=== PATIENT | female | born 1955 | race Caucasian/White ===

== ENCOUNTER → 2016-12-09 | Outpatient (CLI) | payer BC ==
--- NOTE | 2016-12-11 10:24 | MM ---
Reason for exam: screening (asymptomatic). Last mammogram was performed 1 year and 1 month ago. History: Patient is postmenopausal. Benign left mammotome panel of the left breast, January 08, 2009. Cancelled Right US Needle Biopsy of the right breast, January 08, 2009. Took hormonal contraceptives for 6 years beginning at age 21. Physical Findings: A clinical breast exam by your physician is recommended on an annual basis and results should be correlated with mammographic findings. MG Screening Mammo w CAD Bilateral CC and MLO view(s) were taken. Prior study comparison: November 07, 2015, bilateral MG screening mammo w CAD. July 19, 2014, bilateral MG screening mammo w CAD. June 08, 2013, bilateral digital screening mammo w/CAD. The breast tissue is heterogeneously dense. This may lower the sensitivity of mammography. Previous mammotome biopsy in the left breast. No significant changes when compared with prior studies. ASSESSMENT: Negative, BI-RAD 1 RECOMMENDATION: Routine screening mammogram of both breasts in 1 year.
== END | disposition home or self-care (01) ==
LOC: RADMAMWWP 12:31
PROVIDERS: ATTEND Family Medicine
DX: Z12.31 Encounter for screening mammogram for malignant neoplasm of breast (principal)

== ENCOUNTER → 2018-05-28 | Outpatient (CLI) | payer BC ==
--- NOTE | 2018-06-02 10:41 | MM ---
Reason for exam: screening (asymptomatic). Last mammogram was performed 1 year and 6 months ago. History: Patient is postmenopausal. Benign left mammotome panel of the left breast, January 08, 2009. Cancelled Right US Needle Biopsy of the right breast, January 08, 2009. Took hormonal contraceptives for 6 years beginning at age 21. Physical Findings: A clinical breast exam by your physician is recommended on an annual basis and results should be correlated with mammographic findings. MG Screening Mammo W/o Cad Bilateral CC and MLO view(s) were taken. Prior study comparison: December 09, 2016, bilateral MG screening mammo w CAD. November 07, 2015, bilateral MG screening mammo w CAD. The breast tissue is heterogeneously dense. This may lower the sensitivity of mammography. Previous mammotome biopsy in the left breast. There is no discrete abnormality. ASSESSMENT: Benign, BI-RAD 2 RECOMMENDATION: Routine screening mammogram of both breasts in 1 year.
== END | disposition home or self-care (01) ==
LOC: RADMAMWWP 10:01
PROVIDERS: ATTEND Family Medicine
DX: Z12.31 Encounter for screening mammogram for malignant neoplasm of breast (principal)
CPT/HCPCS: 77067

== ENCOUNTER → 2019-10-28 | Outpatient (CLI) | payer BC ==
--- NOTE | 2019-10-28 16:29 | CTL ---
EXAMINATION TYPE: CT Low Dose Lung DATE OF EXAM ORDERED: 10/28/2019 COMPARISON: None HISTORY: . Low Dose CT Lung Screening CT DLP: 60.[address] CTDI: 1.8 mGy IV CONTRAST USED: None. SCREENING VISIT: First visit COMPARISON: None. TECHNIQUE: Low dose computed tomography scan was performed through the chest at 1 millimeter thick se ctions and reconstructed images in the coronal plane at [address] DIAGNOSTIC QUALITY: Satisfactory FINDINGS: LUNG NODULES: Not presentLeft lung: no nodules identified.Right lung: no nodules identified. LUNGS: COPD: Severity: None Fibrosis: Severity:None Lymph nodes: None Other findings: None RIGHT PLEURAL SPACE: Effusion: None Calcification: None Thickening: None Pneumothorax: None LEFT PLEURAL SPACE: Effusion: None Calcification: None Thickening: None Pneumothorax: None HEART: Heart Size: Mildly enlarged Coronary calcification: Mild Pericardial effusion: None OTHER FINDINGS: Upper abdomen: No significant abnormality Bony thorax: Degenerative changes Supraclavicular region: No significant abnormalityOther: No significant abnormalityI IMPRESSION: Benign FOLLOW UP CT CHEST RECOMMENDATION: Follow-up screening in one year CT LUNG RAD: LUNG RAD CATEGORY 1 negative
== END | disposition home or self-care (01) ==
LOC: RADCTMAIN 15:51
PROVIDERS: ATTEND Family Medicine
DX: Z12.2 Encounter for screening for malignant neoplasm of respiratory organs (principal); F17.210 Nicotine dependence, cigarettes, uncomplicated

== ENCOUNTER → 2019-11-29 | Outpatient (CLI) | payer BC ==
--- NOTE | 2019-11-30 11:04 | MM ---
Reason for exam: screening (asymptomatic). Last mammogram was performed 1 year and 6 months ago. History: Patient is postmenopausal. Benign left mammotome panel of the left breast, January 08, 2009. Cancelled Right US Needle Biopsy of the right breast, January 08, 2009. Took hormonal contraceptives for 6 years beginning at age 21. Physical Findings: A clinical breast exam by your physician is recommended on an annual basis and results should be correlated with mammographic findings. MG 3D Screening Mammo W/Cad Bilateral CC and MLO view(s) were taken. Prior study comparison: May 28, 2018, bilateral MG screening mammo w/o cad. December 09, 2016, bilateral MG screening mammo w CAD. The breast tissue is heterogeneously dense. This may lower the sensitivity of mammography. There is a 4mm upper inner quadrant middle depth mass on the right. No suspicious abnormality on the left. ASSESSMENT: Incomplete: need additional imaging evaluation, BI-RAD 0 RECOMMENDATION: Special view mammogram of the right breast. If lesion persists on supplemental views, image directed ultrasound is recommended. [facility] will attempt to contact patient to return for supplemental views and ultrasound if indicated.
== END | disposition home or self-care (01) ==
LOC: RADMAMWWP 09:33
PROVIDERS: ATTEND Family Medicine
DX: Z12.31 Encounter for screening mammogram for malignant neoplasm of breast (principal); Z12.11 Encounter for screening for malignant neoplasm of colon
CPT/HCPCS: 77063; 77067

== ENCOUNTER → 2019-12-13 | Outpatient (CLI) | payer BC ==
--- NOTE | 2019-12-13 11:55 | MM ---
Reason for exam: additional evaluation requested from abnormal screening. Last mammogram was performed less than 1 month ago. History: Patient is postmenopausal. Benign left mammotome panel of the left breast, January 08, 2009. Cancelled Right US Needle Biopsy of the right breast, January 08, 2009. Took hormonal contraceptives for 6 years beginning at age 21. Physical Findings: Nurse did not find any significant physical abnormalities on exam. MG 3D Work Up W/Cad RT Spot compression CC, spot compression MLO, and ML view(s) were taken of the right breast. Prior study comparison: November 29, 2019, bilateral MG 3d screening mammo w/cad. May 28, 2018, bilateral MG screening mammo w/o cad. Persistent nodule posterior to right nipple 7mm, 3.6cm from nipple. These results were verbally communicated with the patient and result sheet given to the patient on 12/13/19. ASSESSMENT: Incomplete: need additional imaging evaluation, BI-RAD 0 RECOMMENDATION: Ultrasound of the right breast.
--- NOTE | 2019-12-13 11:57 | USB ---
Reason for exam: additional evaluation requested from abnormal screening. History: Patient is postmenopausal. Benign left mammotome panel of the left breast, January 08, 2009. Cancelled Right US Needle Biopsy of the right breast, January 08, 2009. Took hormonal contraceptives for 6 years beginning at age 21. US Breast Workup Limited RT Right limited breast ultrasound including focal area of concern, retroareolar and axilla demonstrates no cystic or solid lesion seen. These results were verbally communicated with the patient and result sheet given to the patient on 12/13/19. ASSESSMENT: Probably benign, BI-RAD 3 RECOMMENDATION: Follow-up diagnostic mammogram of the right breast in 6 months.
== END | disposition home or self-care (01) ==
LOC: RADMAMWWP 09:59
PROVIDERS: ATTEND Family Medicine
DX: R92.8 Other abnormal and inconclusive findings on diagnostic imaging of breast (principal)
CPT/HCPCS: 77061; 77065

== ENCOUNTER → 2021-01-22 | Outpatient (CLI) | payer BC ==
--- NOTE | 2021-01-22 11:40 | MM ---
Reason for exam: additional evaluation requested from prior study. Last mammogram was performed 1 year and 1 month ago. History: Patient is postmenopausal. Benign left mammotome panel of the left breast, January 08, 2009. Cancelled Right US Needle Biopsy of the right breast, January 08, 2009. Took hormonal contraceptives for 6 years beginning at age 21. Physical Findings: Nurse did not find any significant physical abnormalities on exam. MG Diagnostic Mammo w CAD BHARGAVI Bilateral CC and MLO view(s) were taken. Prior study comparison: November 29, 2019, bilateral MG 3d screening mammo w/cad. May 28, 2018, bilateral MG screening mammo w/o cad. December 09, 2016, bilateral MG screening mammo w CAD. November 07, 2015, bilateral MG screening mammo w CAD. The breast tissue is heterogeneously dense. This may lower the sensitivity of mammography. No significant new findings when compared with previous films. These results were verbally communicated with the patient and result sheet given to the patient on 01/22/21. ASSESSMENT: Benign, BI-RAD 2 RECOMMENDATION: Routine screening mammogram of both breasts in 1 year.
== END | disposition home or self-care (01) ==
LOC: RADMAMWWP 10:50
PROVIDERS: ATTEND Family Medicine
DX: R92.2 Inconclusive mammogram (principal); Z78.0 Asymptomatic menopausal state
CPT/HCPCS: 77066

== ENCOUNTER 2021-10-24 08:19 | Emergency (ER) | payer MEDICARE ==
[2021-10-24] MEDS ORDERED: SODIUM CHLORIDE 0.9% 1,000 ML IV STA (08:40)
--- NOTE | 2021-10-24 09:02 | ED ---
Abdominal Pain HPI - General Chief Complaint: Abdominal Pain Stated Complaint: abd pain, swelling Time Seen by Provider: 10/24/21 08:27 Source: patient Mode of arrival: ambulatory Limitations: no limitations - History of Present Illness Initial Comments: 66-year-old female presents to the emergency department with abdominal pain 1 week. She has a past medical history of 3 double hernia repair surgeries in her past which she believes were umbilical and in her groin.Patient states her abdominal pain is in her left lower quadrant and comes and goes throughout the day, varying in severity. She states 4 days ago she noticed her left lower quadrant began to swell, which brought her in today. States her pain is currently 2/10 and describes the pain as aching. She states this pain is random. Patient states she did vomit one time last week when the pain began. She denies nausea, diarrhea, constipation, blood in stool, headache, dizziness, chest pain or shortness of breath. She denies ever having diverticulitis in her past. - Related Data Home Medications Medication Instructions Recorded Confirmed No Known Home Medications 10/24/21 10/24/21 Allergies Allergy/AdvReac Type Severity Reaction Status Date / Time No Known Allergies Allergy Verified 10/24/21 09:32 Review of Systems ROS Statement: Those systems with pertinent positive or pertinent negative responses have been documented in the HPI. ROS Other: All systems not noted in ROS Statement are negative. Past Medical History Past Medical History: No Reported History History of Any Multi-Drug Resistant Organisms: None Reported Past Surgical History: Section, Hernia Repair, Orthopedic Surgery Additional Past Surgical History / Comment(s): R wrist Past Psychological History: No Psychological Hx Reported Smoking Status: Current every day smoker Past Alcohol Use History: None Reported Past Drug Use History: None Reported General Exam Limitations: no limitations General appearance: alert, in no apparent distress Head exam: Present: atraumatic, normocephalic, normal inspection Eye exam: Present: normal appearance, PERRL, EOMI. Absent: scleral icterus, conjunctival injection, periorbital swelling ENT exam: Present: normal exam, mucous membranes moist Neck exam: Present: normal inspection Respiratory exam: Present: normal lung sounds bilaterally. Absent: respiratory distress, wheezes, rales, rhonchi, stridor Cardiovascular Exam: Present: regular rate, normal rhythm, normal heart sounds. Absent: systolic murmur, diastolic murmur, rubs, gallop, clicks GI/Abdominal exam: Present: soft, tenderness (minor swelling in left groin/lower left quadrant of abdomen ), normal bowel sounds Extremities exam: Present: normal inspection, full ROM. Absent: tenderness, pedal edema, joint swelling, calf tenderness Neurological exam: Present: alert Psychiatric exam: Present: normal affect Skin exam: Present: warm, dry, intact, normal color. Absent: rash Course Vital Signs 10/24/21 08:21 Temperature 98.6 F Pulse Rate 88 Respiratory 16 Rate Blood Pressure 145/91 O2 Sat by Pulse 98 Oximetry Medical Decision Making - Medical Decision Making This 66-year-old female presented to the emergency department with 1 week of intermittent abdominal pain and swelling. Labs and vitals within normal limits. Abdominal CT scan showed possible enteritis or sliding hernia. Return precautions discussed, patient sent home in stable condition and was told to follow up with PCP or surgeon within 3 days. - Lab Data Result diagrams: 10/24/21 08:52 10/24/21 08:52 Lab Results 10/24/21 10/24/21 10/24/21 Range/Units 08:52 08:52 08:52 WBC 8.7 (3.8-10.6) k/uL RBC 5.09 (3.80-5.40) m/uL Hgb 16.1 H (11.4-16.0) gm/dL Hct 49.1 H (34.0-46.0) % MCV 96.5 (80.0-100.0) fL MCH 31.6 (25.0-35.0) pg MCHC 32.7 (31.0-37.0) g/dL RDW 12.9 (11.5-15.5) % Plt Count 247 (150-450) k/uL MPV 6.8 Neutrophils % 66 % Lymphocytes % 23 % Monocytes % 5 % Eosinophils % 3 % Basophils % 1 % Neutrophils # 5.7 (1.3-7.7) k/uL Lymphocytes # 2.0 (1.0-4.8) k/uL Monocytes # 0.4 (0-1.0) k/uL Eosinophils # 0.3 (0-0.7) k/uL Basophils # 0.1 (0-0.2) k/uL Sodium 140 (137-145) mmol/L Potassium 4.3 (3.5-5.1) mmol/L Chloride 102 (98-107) mmol/L Carbon Dioxide 27 (22-30) mmol/L Anion Gap 11 mmol/L BUN 16 (7-17) mg/dL Creatinine 1.05 H (0.52-1.04) mg/dL Est GFR (CKD-EPI)AfAm 64 (>60 ml/min/1.73 sqM) Est GFR (CKD-EPI)NonAf 56 (>60 ml/min/1.73 sqM) Glucose 116 H (74-99) mg/dL Plasma Lactic Acid [place] (0.7-2.0) mmol/L Calcium 10.3 H (8.4-10.2) mg/dL Total Bilirubin 0.8 (0.2-1.3) mg/dL AST 29 (14-36) U/L ALT 22 (4-34) U/L Alkaline Phosphatase 72 (38-126) U/L Total Protein 7.6 (6.3-8.2) g/dL Albumin 4.7 (3.5-5.0) g/dL Lipase 84 (23-300) U/L Urine Color Yellow Urine Appearance Clear (Clear) Urine pH 7.5 (5.0-8.0) Ur Specific [place] 1.013 (1.001-1.035) Urine Protein Negative (Negative) Urine Glucose (UA) Negative (Negative) Urine Ketones Negative (Negative) Urine Blood Negative (Negative) Urine Nitrite Negative (Negative) Urine Bilirubin Negative (Negative) Urine Urobilinogen <2.0 (<2.0) mg/dL Ur Leukocyte Esterase Large H (Negative) Urine RBC 2 (0-5) /hpf Urine WBC 4 (0-5) /hpf Ur Squamous Epith Cells <1 (0-4) /hpf Urine Mucus Rare H (None) /hpf 10/24/21 Range/Units 08:52 WBC (3.8-10.6) k/uL RBC (3.80-5.40) m/uL Hgb (11.4-16.0) gm/dL Hct (34.0-46.0) % MCV (80.0-100.0) fL MCH (25.0-35.0) pg MCHC (31.0-37.0) g/dL RDW (11.5-15.5) % Plt Count (150-450) k/uL MPV Neutrophils % % Lymphocytes % % Monocytes % % Eosinophils % % Basophils % % Neutrophils # (1.3-7.7) k/uL Lymphocytes # (1.0-4.8) k/uL Monocytes # (0-1.0) k/uL Eosinophils # (0-0.7) k/uL Basophils # (0-0.2) k/uL Sodium (137-145) mmol/L Potassium (3.5-5.1) mmol/L Chloride (98-107) mmol/L Carbon Dioxide (22-30) mmol/L Anion Gap mmol/L BUN (7-17) mg/dL Creatinine (0.52-1.04) mg/dL Est GFR (CKD-EPI)AfAm (>60 ml/min/1.73 sqM) Est GFR (CKD-EPI)NonAf (>60 ml/min/1.73 sqM) Glucose (74-99) mg/dL Plasma Lactic Acid [place] 1.1 (0.7-2.0) mmol/L Calcium (8.4-10.2) mg/dL Total Bilirubin (0.2-1.3) mg/dL AST (14-36) U/L ALT (4-34) U/L Alkaline Phosphatase (38-126) U/L Total Protein (6.3-8.2) g/dL Albumin (3.5-5.0) g/dL Lipase (23-300) U/L Urine Color Urine Appearance (Clear) Urine pH (5.0-8.0) Ur Specific [place] (1.001-1.035) Urine Protein (Negative) Urine Glucose (UA) (Negative) Urine Ketones (Negative) Urine Blood (Negative) Urine Nitrite (Negative) Urine Bilirubin (Negative) Urine Urobilinogen (<2.0) mg/dL Ur Leukocyte Esterase (Negative) Urine RBC (0-5) /hpf Urine WBC (0-5) /hpf Ur Squamous Epith Cells (0-4) /hpf Urine Mucus (None) /hpf Disposition Clinical Impression: Abdominal pain Disposition: HOME SELF-CARE Condition: Stable Instructions (If sedation given, give patient instructions): Abdominal Pain (ED) Additional Instructions: Return to emergency department if any symptoms worsen. Take Tylenol as needed for pain. Follow up wtih PCP or surgeon within 3 days. Is patient prescribed a controlled substance at d/c from ED?: No Referrals: Barb Santos MD [Primary Care Provider] - 1-2 days Decision Time: 10:51
[2021-10-24 09:03] LABS: Basophils # (A) 0.1 k/uL (0-0.2); Basophils % (A) 1 %; Eosinophils # (A) 0.3 k/uL (0-0.7); Eosinophils % (A) 3 %; HCT 49.1 % (34.0-46.0); HGB 16.1 gm/dL (11.4-16.0); Lymphocytes % (A) 23 %; MCH 31.6 pg (25.0-35.0); MCHC 32.7 g/dL (31.0-37.0); MCV 96.5 fL (80.0-100.0); Mean Platelet Volume 6.8; Monocytes # (A) 0.4 k/uL (0-1.0); Monocytes % (A) 5 %; Neutrophils # (A) 5.7 k/uL (1.3-7.7); Neutrophils % (A) 66 %; Platelet Count 247 k/uL (150-450); RBC 5.09 m/uL (3.80-5.40); RDW 12.9 % (11.5-15.5); WBC 8.7 k/uL (3.8-10.6)
[2021-10-24 09:14] LABS: Appearance,Urine Clear (Clear); Bilirubin,Urine Negative (Negative); Blood,Urine Negative (Negative); Color,Urine Yellow; Glucose,Urine (UA) Negative (Negative); Ketones,Urine Negative (Negative); Leukocyte Esterase,Urine Large (Negative); Mucus,Urine Rare /hpf; Nitrite,Urine Negative (Negative); PH, Urine 7.5 (5.0-8.0); Protein,Urine Negative (Negative); RBC,Urine 2 /hpf (0-5); Specific Gravity,Urine 1.013 (1.001-1.035); Squamous Epithelial Cell,Urine <1 /hpf (0-4); Urobilinogen,Urine <2.0 mg/dL (<2.0); WBC,Urine 4 /hpf (0-5)
[2021-10-24 09:16] LABS: Albumin 4.7 g/dL (3.5-5.0); Calcium 10.3 mg/dL (8.4-10.2); Potassium 4.3 mmol/L (3.5-5.1); Total Bilirubin 0.8 mg/dL (0.2-1.3); Total Protein 7.6 g/dL (6.3-8.2)
--- NOTE | 2021-10-24 10:14 | CT ---
EXAMINATION TYPE: CT abdomen pelvis w con DATE OF EXAM: 10/24/2021 COMPARISON: None HISTORY: Abdominal pain and swelling for one week CT DLP: 713.8 mGycm Automated exposure control for dose reduction was used. TECHNIQUE: Helical acquisition of images from the lung bases through the pelvis have been completed. CONTRAST: Performed without Oral Contrast and with IV Contrast, patient injected with 100 ml mL of Isovue 300. FINDINGS: LUNG BASES: Dependent atelectatic changes are present. AORTA: No significant abnormality is appreciated. LIVER/GB: There is some mild prominence the intrahepatic biliary ducts, gallbladder shows no definite stones. There is some metallic density present along the region which is thought to be posterior to the common bile duct, immediately anterior to the inferior vena cava, nonaggressive appearance, may b e vascular or associated with a node. PANCREAS: No significant abnormality is seen. SPLEEN: No significant abnormality is seen. ADRENALS: No significant abnormality is seen. KIDNEYS: No significant abnormality is seen. REPRODUCTIVE ORGANS: No significant abnormality is seen BOWEL: Scattered diverticula associated with the colon, no evident bowel obstruction or appendicitis . There are some small bowel loops fluid present, questionable small bowel wall thickening in the lef t upper quadrant. FREE AIR: No Free Air visible. ASCITES: None visible. PELVIC ADENOPATHY: None visualized. RETROPERITONEAL ADENOPATHY: No Retroperitoneal Adenopathy visible. URINARY BLADDER: No significant abnormality is seen. OSSEOUS STRUCTURES: Degenerative disc changes are present in the lumbar spine, there is some associa candace facet arthropathy. IMPRESSION: NONSPECIFIC CALCIFICATION SUSPECTED IN THE RIGHT UPPER QUADRANT. SOME MILD PROMINENCE OF INTRAHEPATIC BILIARY DUCTS. DIVERTICULOSIS. CORRELATE TO EXCLUDE ENTERITIS.
[2021-10-24 10:49] VITALS: BP 135/75; PULSE 65; RESP 18; TEMP 97.4
== END 2021-10-24 11:06 | disposition home or self-care (01) ==
LOC: EC 08:19
DX: R10.9 Unspecified abdominal pain (principal); F17.200 Nicotine dependence, unspecified, uncomplicated
CPT/HCPCS: 36415; 80053; 83605; 83690; 85025; 81001; 74177; 99284; 96360; Q9967

== ENCOUNTER 2022-04-18 08:02 | Day surgery (SDC) | payer MEDICARE ==
[2022-04-17 09:56] VITALS: BMI 21.6
--- NOTE | 2022-04-17 15:50 | P.GSHP ---
History of Present Illness H&P Date: 04/18/22 Chief Complaint: Left inguinal hernia 66-year-old female scheduled for elective repair left inguinal hernia. Patient with complaints of bulging and pain in the left groin. History of previous open repair right inguinal hernia with mesh. No nausea or vomiting. No change in bowel habits. Please refer to history and physical from January for further details. Past Medical History Past Medical History: No Reported History Additional Past Medical History / Comment(s): left inguinal hernia History of Any Multi-Drug Resistant Organisms: None Reported Past Surgical History: Section, Hernia Repair, Orthopedic Surgery Additional Past Surgical History / Comment(s): R wrist,3 double umbilical hernia repair Past Anesthesia/Blood Transfusion Reactions: No Reported Reaction Additional Past Anesthesia/Blood Transfusion Reaction / Comment(s): no hx blood transfusion Smoking Status: Current every day smoker - Past Family History Mother Family Medical History: Cancer Additional Family Medical History / Comment(s): lung Medications and Allergies Home Medications Medication Instructions Recorded Confirmed Type Calcium(500 Mg Tab) 1 dose PO DAILY 04/17/22 04/17/22 History Cannabidiol (Cbd) [Epidiolex] 1 dose PO HS 04/17/22 04/17/22 History Garlic 100 mg PO DAILY 04/17/22 04/17/22 History Selenium 50 mcg PO DAILY 04/17/22 04/17/22 History Triple [place] 3 Supp 1 dose PO DAILY 04/17/22 04/17/22 History Allergies Allergy/AdvReac Type Severity Reaction Status Date / Time No Known Allergies Allergy Verified 04/17/22 08:54 Surgical - Exam Physical exam: General: Well-developed, well-nourished HEENT: Normocephalic, sclerae nonicteric Abdomen: Nontender, nondistended, reducible left inguinal hernia mildly tender, possible tiny recurrent right inguinal hernia Extremities: No edema Neuro: Alert and oriented Assessment and Plan (1) Left inguinal hernia Narrative/Plan: 66-year-old female with symptomatic left inguinal hernia. We'll proceed with da Rogelio assisted laparoscopic left inguinal hernia repair with mesh, possible open, possible bilateral. Risks of bleeding, infection, recurrence, bladder and bowel injury, numbness, nerve injury, conversion to an open procedure were discussed with the patient. The patient understands and wishes to proceed. Status: Acute Code(s): K40.90 - UNIL INGUINAL HERNIA, W/O OBST OR GANGR, NOT SPCF RECUR SNOMED Code(s): 458190900
[~2022-04-18 08:02] MED LIST: ACETAMINOPHEN TAB 500 MG TAB PO PRN; DEXAMETHASONE SOD PHOSPHATE 4 MG/ML 1 ML VIAL IV ONE; HEPARIN SODIUM,PORCINE/PF 5,000 UNIT/0.5 ML SYRINGE SQ PRN; HYDROmorphone 0.5 MG/0.5 ML SYRINGE IVP PRN; LACTATED RINGERS 1,000 ML IV SCH; LIDOCAINE 1% (10MG/ML) FOR IV START INTRADERMA PRN; MIDAZOLAM 2 MG/2 ML VIAL IV PRN; ONDANSETRON 4 MG/2 ML VIAL IVP ONE
[2022-04-18] MEDS ORDERED: HYDROmorphone (PF) 1 MG/ML ONE (10:06)
[2022-04-18] MEDS ORDERED: NEOSTIGMINE 1 MG/ML 10 ML VIAL ONE (10:06)
[2022-04-18] MEDS ORDERED: SUCCINYLCHOLINE CHLORIDE 100 MG/5 ML SYR IV ONE (10:06)
[2022-04-18] MEDS ORDERED: PROPOFOL 10 MG/ML 20 ML VIAL IV ONE (10:06)
[2022-04-18] MEDS ORDERED: fentaNYL (PF) 50 MCG/ML 2 ML AMP ONE (10:06)
[2022-04-18] MEDS ORDERED: ROCURONIUM 10 MG/ML (5 ML VIAL) IV ONE (10:06)
[2022-04-18] MEDS ORDERED: LIDOCAINE 2% INJ 20 MG/ML (2 ML VIAL) ONE (10:06)
[2022-04-18] MEDS ORDERED: hydrALAZINE HCL 20 MG/ML 1 ML VIAL ONE (10:06)
[2022-04-18] MEDS ORDERED: MIDAZOLAM 2 MG/2 ML VIAL ONE (10:06)
[2022-04-18] MEDS ORDERED: PHENYLEPHRINE-0.9% NACL SYG 1,000 MCG/10 ML SYRINGE ONE (10:06)
[2022-04-18] MEDS ORDERED: GLYCOPYRROLATE 0.2 MG/ML 2 ML VIAL ONE (10:06)
[2022-04-18] MEDS ORDERED: BUPIVACAIN-EPI 0.25%-1:200,000 30 ML VIAL SQ ONE (10:30)
[2022-04-18 11:42] VITALS: TEMP 97.6
[2022-04-18 11:48] VITALS: RESP 16
[2022-04-18] MEDS ORDERED: ONDANSETRON 4 MG/2 ML VIAL IVP PRN (11:56)
[2022-04-18] MEDS ORDERED: ACETAMINOPHEN TAB 325 MG TAB PO SCH (12:00)
--- NOTE | 2022-04-18 12:06 | P.OP ---
Date of Procedure: 04/18/22 Procedure(s) Performed: PREOPERATIVE DIAGNOSIS: Reducible left inguinal hernia POSTOPERATIVE DIAGNOSIS: Same PROCEDURE: Laparoscopic da Rogelio assisted repair left inguinal hernia SURGEON: Dr. Haque ANESTHESIA: General OPERATIVE PROCEDURE DETAILS: Patient was placed in the operating table in the supine position. The patient was placed under general anesthesia. The abdomen was prepped and draped in usual sterile fashion. A small curvilinear supraumbilical incision was made. The fascia was retracted anteriorly with Rayna forceps. The Veress needle was inserted. The saline drop test was normal. Insufflation took place to 15 mmHg. An 8 mm trocar was placed into the peritoneal cavity. 2 additional 8 mm trochars were placed in the right upper quadrant and left upper quadrant under visualization. The robotic arms were then brought in and docked into place. The fenestrated bipolar was used in the left arm and the laparoscopic abebe was utilized in the right arm. A 30 8 mm scope was used in the up position. The peritoneal cavity was inspected. The patient had an obviously moderate to large sized indirect inguinal hernia on the left-hand side. It was difficult to say with certainty without opening the peritoneum but there may have been a small defect in the direct space on the r ight hand side. The patient had no symptoms on that side and this was observed for now. The left-sided peritoneum was incised in a horizontal fashion cephalad to the internal inguinal ring. Following that careful dissection of the preperitoneal space took place. This took place using both electrocautery, sharp dissection but primarily blunt dissection. Visualization of the pubic tubercle and Alf's ligament took place medially. Full dissection took place laterally as well. The hernia sac was dissected. As we were dissecting the peritoneal hernia sac it tore away distally. A portion of the end of the hernia sac was left in place. The peritoneum was further dissected posteriorly until we had a large space for our mesh to adhere. The large Bard 3-D mid mesh was advanced into the preperitoneal space and flattened out appropriately to cover all potential hernia sites. No sutures were used. The peritoneal defect was then closed using a absorbable 2-0 VLok suture. This same suture was used to close the defect in the peritoneum or the hernia sac had been present and I incorporated all redundant hernia sac into that closure. The skin of all 3 sites was closed using a 4-0 Monocryl stitch. Skin glue was then applied. TYPE OF MESH USED: Bard large left sided 3-D mid LOCATION OF MESH: Preperitoneal FIXATION: None PREOPERATIVE DISCUSSION ON SMOKING CESSASTION: Yes PREOPERATIVE DISCUSSION ON MORBID OBESITY: Yes PREOPERATIVE DISCUSSION ON APPROPRIATE USE OF NARCOTIC USE: Yes PREOPERATIVE EDUCATION: Multi Modal, Smoking Cessation and Weight Loss with BMI over 35. DISPOSITION: Stable to recovery room
[2022-04-18] MEDS ORDERED: IBUPROFEN 200 MG TAB PO ONE (12:30)
[2022-04-18 12:48] VITALS: BP 120/73; PULSE 80
[2022-04-18] MEDS ORDERED: IBUPROFEN 600 MG TAB PO SCH (15:00)
== END 2022-04-18 13:24 | disposition home or self-care (01) ==
LOC: OR 08:02
PROVIDERS: ATTEND Surgery
DX: K40.90 Unilateral inguinal hernia, without obstruction or gangrene, not specified as recurrent (principal); Z98.891 History of uterine scar from previous surgery; Z98.890 Other specified postprocedural states; F17.210 Nicotine dependence, cigarettes, uncomplicated; Z80.1 Family history of malignant neoplasm of trachea, bronchus and lung
CPT/HCPCS: 49650; S2900

== ENCOUNTER → 2022-05-19 | Outpatient (CLI) | payer MEDICARE ==
--- NOTE | 2022-05-20 08:50 | BD ---
EXAMINATION TYPE: Axial Bone Density DATE OF EXAM: 05/19/2022 COMPARISON: FIRST DEXA AT [facility] CLINICAL HISTORY: 66 years year old Female. ICD-10 CODE: M81.0 AGE RELATED OSTEOPOROSIS Height: 5FT7IN Weight: 138 FRAX RISK QUESTIONS: History of Fracture in Adulthood: YES Secondary Osteoporosis: Current Tobacco Use: YES RISK FACTORS HISTORY OF: Postmenopausal woman: YES MEDICATIONS: Additional Medications: CALCIUM WITH VITAMIN D, CHOLESTEROL MED, Additional History: ANKLE FX MANY YEARS AGO EXAM MEASUREMENTS: Bone mineral densitometry was performed using the [employer] System. Bone mineral density as measured about the Lumbar spine is: ----- L1-L4(G/cm2): 0.951 T Score Values are as follows: ----- L1: -2.1 ----- L2: -2.1 ----- L3: -1.9 ----- L4: -1.6 ----- L1-L4: -1.9 BASELINE DEXA Bone mineral density about the R hip (g/cm2): 0.718 Bone mineral density about the L hip (g/cm2): 0.766 T Score values are as follows: -----R Neck: -2.2 -----L Neck: -2.0 -----R Total: -2.3 -----L Total: -1.9 FRAX%s: The graph provided illustrates a 18.9% chance for a major osteoporotic fx and a 5.9% chance f or the hips probability for fx in 10 years time. IMPRESSION: Osteopenia (T Score between -2.5 and -1). There is slightly increased risk of fracture and the patient may be considered for treatment. Re-Screen 2-5 years. NOTE: T-SCORE=SD OF THE YOUNG ADULT MEAN.
--- NOTE | 2022-05-20 11:32 | MM ---
Reason for Exam: Screening (asymptomatic). Last mammogram was performed 1 year(s) and 4 month(s) ago. Patient History: Menarche at age 13. First Full-Term at age 27. Postmenopausal. Hormonal Contraceptives for 6 years from age 21 until age 27. 01/08/2009, Benign Core Biopsy on the left side. 01/08/2009, Cancelled Right US Needle Biopsy on the right side. Risk Values: Lizz 5 year model risk: 2.2%. NCI Lifetime model risk: 8.2%. Prior Study Comparison: 11/29/2019 Bilateral Screening Mammogram, [facility]. 12/13/2019 Right Diagnostic Mammogram, [facility]. 01/22/2021 Bilateral Diagnostic Mammogram, [facility]. Tissue Density: The breast tissue is heterogeneously dense. This may lower the sensitivity of mammography. Findings: Analyzed By CAD. There is no suspicious group of microcalcifications or new suspicious mass in either breast. No significant change from prior examination. Overall Assessment: Benign, BI-RAD 2 Management: Screening Mammogram of both breasts in 1 year. A clinical breast exam by your physician is recommended on an annual basis and results should be correlated with mammographic findings. Electronically signed and approved by: Casey Teresa D.O.
== END | disposition home or self-care (01) ==
LOC: RADMAMWWP 13:57
PROVIDERS: ATTEND Internal Medicine
DX: Z12.31 Encounter for screening mammogram for malignant neoplasm of breast (principal); M85.89 Other specified disorders of bone density and structure, multiple sites; Z78.0 Asymptomatic menopausal state
CPT/HCPCS: 77063; 77067; 77080

== ENCOUNTER → 2022-11-17 | Outpatient (CLI) | payer MEDICARE ==
--- NOTE | 2022-11-17 15:35 | CTL ---
EXAMINATION TYPE: CT Low Dose Lung DATE OF EXAM ORDERED: 11/17/2022 HISTORY: Z87.891 personal hx tobacco use. Lung cancer screening CT DLP: 60.[address] CTDI: 1.8 mGy Automated exposure control for dose reduction was used. SCREENING VISIT: Follow-up COMPARISON: CT Low Dose Lung cancer screening 10/28/2019. TECHNIQUE: Low dose computed tomography scan was performed through the chest at 1 mm thick sections a nd reconstructed images in multiple planes at 1 mm and [address] DIAGNOSTIC QUALITY: Satisfactory FINDINGS: LUNG NODULES: No clinically significant pulmonary nodules identified. LUNGS: COPD: Severity: None Fibrosis: Severity: Mild biapical. Lymph nodes: None Other findings: None RIGHT PLEURAL SPACE: Effusion: None Calcification: None Thickening: None Pneumothorax: None LEFT PLEURAL SPACE: Effusion: None Calcification: None Thickening: None Pneumothorax: None HEART: Heart Size: Normal Coronary Calcification: Minimal Pericardial Effusion: None OTHER FINDINGS: Upper abdomen: None Bony thorax: None Supraclavicular region: None Other: None IMPRESSION: No clinically significant pulmonary nodules. CT LUNG RAD AND CT CHEST RECOMMENDATION: Lung-Rad 1 Negative: Continue annual screening with LDCT in 12 months. S Modifier (other clinically significant findings): None
== END | disposition home or self-care (01) ==
LOC: RADCTMAIN 13:41
PROVIDERS: ATTEND Internal Medicine
DX: Z12.2 Encounter for screening for malignant neoplasm of respiratory organs (principal); F17.210 Nicotine dependence, cigarettes, uncomplicated
CPT/HCPCS: 71271

== ENCOUNTER → 2023-04-23 | Outpatient (CLI) | payer MEDICARE | END | disposition home or self-care (01) | LOC: LABPAT 09:57 | PROVIDERS: ATTEND Surgery | DX: Z01.818 Encounter for other preprocedural examination (principal); K40.90 Unilateral inguinal hernia, without obstruction or gangrene, not specified as recurrent | CPT/HCPCS: 93005 ==

== ENCOUNTER 2023-05-01 08:31 | Day surgery (SDC) | payer MEDICARE ==
[2023-04-28 14:51] VITALS: BMI 21.1
[~2023-05-01 08:31] MED LIST changes: -DEXAMETHASONE SOD PHOSPHATE 4 MG/ML 1 ML VIAL IV ONE; -HYDROmorphone 0.5 MG/0.5 ML SYRINGE IVP PRN; -LACTATED RINGERS 1,000 ML IV SCH; -LIDOCAINE 1% (10MG/ML) FOR IV START INTRADERMA PRN; -MIDAZOLAM 2 MG/2 ML VIAL IV PRN; -ONDANSETRON 4 MG/2 ML VIAL IVP ONE
[2023-05-01] MEDS ORDERED: LACTATED RINGERS 1,000 ML IV SCH (08:37)
[2023-05-01] MEDS ORDERED: MIDAZOLAM 2 MG/2 ML VIAL IV PRN (08:37)
[2023-05-01] MEDS ORDERED: ONDANSETRON 4 MG/2 ML VIAL IVP ONE (08:37)
[2023-05-01] MEDS ORDERED: DEXAMETHASONE SOD PHOSPHATE 4 MG/ML 1 ML VIAL IV ONE (08:37)
[2023-05-01] MEDS ORDERED: HYDROmorphone 0.5 MG/0.5 ML SYRINGE IVP PRN (08:37)
[2023-05-01 09:08] LABS: Basophils % (A) 0 %; Eosinophils # (A) 0.3 k/uL (0-0.7); Eosinophils % (A) 5 %; HCT 43.4 % (34.0-46.0); HGB 14.6 gm/dL (11.4-16.0); Lymphocytes # (A) 1.6 k/uL (1.0-4.8); Lymphocytes % (A) 26 %; MCHC 33.5 g/dL (31.0-37.0); MCV 95.3 fL (80.0-100.0); Monocytes # (A) 0.3 k/uL (0-1.0); Monocytes % (A) 5 %; Neutrophils # (A) 3.8 k/uL (1.3-7.7); Neutrophils % (A) 63 %; Platelet Count 197 k/uL (150-450); RBC 4.56 m/uL (3.80-5.40); RDW 12.7 % (11.5-15.5); WBC 6.1 k/uL (3.8-10.6)
[2023-05-01 09:18] LABS: ALT 24 U/L (4-34); AST 29 U/L (14-36); African American GFR (CKD) 86 (>60 ml/min/1.73 sqM); Albumin 4.1 g/dL (3.5-5.0); Alkaline Phosphatase 75 U/L (38-126); Anion Gap 5 mmol/L; Blood Urea Nitrogen 11 mg/dL (7-17); Calcium 9.2 mg/dL (8.4-10.2); Carbon Dioxide 26 mmol/L (22-30); Chloride 109 mmol/L (98-107); Glucose 97 mg/dL (74-99); Non-African American GFR(CKD) 75 (>60 ml/min/1.73 sqM); Sodium 140 mmol/L (137-145); Total Bilirubin 0.5 mg/dL (0.2-1.3); Total Protein 6.5 g/dL (6.3-8.2)
[2023-05-01] MEDS ORDERED: BUPIVACAINE (PF) 0.25% 30 ML VIAL SQ ONE ×2 (10:31→10:57)
[2023-05-01] MEDS ORDERED: fentaNYL (PF) 50 MCG/ML 2 ML AMP ONE (10:35)
[2023-05-01] MEDS ORDERED: GLYCOPYRROLATE 0.2 MG/ML 2 ML VIAL ONE (10:35)
[2023-05-01] MEDS ORDERED: MIDAZOLAM 2 MG/2 ML VIAL ONE (10:35)
[2023-05-01] MEDS ORDERED: NEOSTIGMINE 1 MG/ML 10 ML VIAL ONE (10:35)
[2023-05-01] MEDS ORDERED: SUCCINYLCHOLINE CHLORIDE 200 MG/10 ML VIAL IV ONE (10:35)
[2023-05-01] MEDS ORDERED: ROCURONIUM 10 MG/ML (5 ML VIAL) IV ONE (10:35)
[2023-05-01] MEDS ORDERED: PROPOFOL 10 MG/ML 20 ML VIAL IV ONE (10:35)
[2023-05-01] MEDS ORDERED: LIDOCAINE 2% INJ 20 MG/ML (2 ML VIAL) ONE (10:35)
[2023-05-01] MEDS ORDERED: LACTATED RINGERS 1,000 ML IV ONE (11:49)
--- NOTE | 2023-05-01 12:15 | P.OP ---
Date of Procedure: 05/01/23 Procedure(s) Performed: PREOPERATIVE DIAGNOSIS: Right inguinal hernia POSTOPERATIVE DIAGNOSIS: Same PROCEDURE: Laparoscopic da Rogelio assisted repair right inguinal hernia with mesh SURGEON: Dr. Haque ANESTHESIA: General OPERATIVE PROCEDURE DETAILS: Patient was placed in the operating table in the supine position. The patient was placed under general anesthesia. The abdomen was prepped and draped in usual sterile fashion. A small curvilinear supraumbilical incision was made at the previous scar site. The fascia was retracted anteriorly with Rayna forceps. The Veress needle was inserted. The saline drop test was normal. Insufflation took place to 15 mmHg. An 8 mm trocar was placed into the peritoneal cavity. 2 additional 8 mm trochars were placed in the right upper quadrant and left upper quadrant under visualization through the previous scar sites. The robotic arms were then brought in and docked into place. The fenestrated bipolar was used in the left arm and the laparoscopic abebe was utilized in the right arm. A 30 8 mm scope was used in the up position. The peritoneal cavity was inspected. The previous left-sided repair was noted. The mesh was seen beneath the peritoneal surface. No recurrent hernia was seen. On the right-hand side a smaller defect was seen in the direct space. The peritoneum was incised in a horizontal fashion cephalad to the internal inguinal ring. Following that careful dissection of the preperitoneal space took place. This took place using both electrocautery, sharp dissection but primarily blunt dissection. Visualization of the pubic tubercle and Alf's ligament took place medially. Full dissection took place laterally as well. The patient had 3-4 small defects in the direct space. A small femoral hernia was also seen. The hernia sacs were fully dissected. Once we had adequate space the [id number] Progrip mesh was advanced into the preperitoneal space and flattened out appropriately to cover all potential hernia sites. An absorbable 30V lock suture was used to suture the mesh to the Alf's ligament extending medially to the pubis and then superiorly and anteriorly to the midline. The peritoneal defect was then closed using a absorbable 2-0 VLok suture. The hernia sac was incorporated into the peritoneal closure to help prevent future recurrence. The pneumoperitoneum was then evacuated. The skin of all 3 sites was closed using a 4-0 Monocryl stitch. Skin glue was then applied. TYPE OF MESH USED: 15 x 10 cm progrip LOCATION OF MESH: Preperitoneal FIXATION: Absorbable 30V lock PREOPERATIVE DISCUSSION ON SMOKING CESSASTION: Yes PREOPERATIVE DISCUSSION ON MORBID OBESITY: Yes PREOPERATIVE DISCUSSION ON APPROPRIATE USE OF NARCOTIC USE: Yes PREOPERATIVE EDUCATION: Multi Modal, Smoking Cessation and Weight Loss with BMI over 35. DISPOSITION: Stable to recovery room
[2023-05-01 12:27] VITALS: TEMP 98
[2023-05-01 12:40] VITALS: RESP 16
[2023-05-01 13:28] VITALS: BP 132/68; PULSE 64
[2023-05-01] MEDS ORDERED: ACETAMINOPHEN TAB 325 MG TAB PO SCH (15:00)
[2023-05-01] MEDS ORDERED: IBUPROFEN 600 MG TAB PO SCH (18:00)
== END 2023-05-01 13:30 | disposition home or self-care (01) ==
LOC: OR 08:31
PROVIDERS: ATTEND Surgery
DX: K40.90 Unilateral inguinal hernia, without obstruction or gangrene, not specified as recurrent (principal); F17.200 Nicotine dependence, unspecified, uncomplicated; E78.5 Hyperlipidemia, unspecified; Z79.899 Other long term (current) drug therapy; Z98.891 History of uterine scar from previous surgery
CPT/HCPCS: 86900; 86901; 80053; 85025; 86850; 49650; C1781; J2250; J0330; J1100; J2710; J0690; J2405; J3010; J2704; J1644; J2001

== ENCOUNTER → 2023-12-18 | Outpatient (CLI) | payer MEDICARE ==
--- NOTE | 2023-12-18 13:54 | CTL ---
EXAMINATION TYPE: CT Low Dose Lung DATE OF EXAM ORDERED: 12/18/2023 HISTORY: . Lung cancer screening CT DLP: 71.[address] CTDI: 1.9 mGy Automated exposure control for dose reduction was used. SCREENING VISIT: Follow-up. COMPARISON: 11/17/2022. TECHNIQUE: Low dose computed tomography scan was performed through the chest at 1 mm thick sections a nd reconstructed images in multiple planes at 1 mm and [address] DIAGNOSTIC QUALITY: Satisfactory FINDINGS: LUNG NODULES: No significant pulmonary nodules are identified. LUNGS: COPD: Severity: None Fibrosis: Severity: None Lymph nodes: No adenopathy. Other findings: RIGHT PLEURAL SPACE: Effusion: None Calcification: None Thickening: None Pneumothorax: None LEFT PLEURAL SPACE: Effusion: None Calcification: None Thickening: None Pneumothorax: None HEART: Heart Size: Normal Coronary Calcification: There is mild vascular calcification within the thoracic aorta with the ascen ding aortic measuring up to 4.9 cm. Minimal coronary calcium is seen within the left anterior descend ing. Pericardial Effusion: None OTHER FINDINGS: Upper abdomen: None Bony thorax: None Supraclavicular region: None Other: None IMPRESSION: Negative lung cancer screening examination for significant pulmonary nodules. CT LUNG RAD AND CT CHEST RECOMMENDATION: Lung-Rad 1 Negative: Continue annual screening with LDCT in 12 months.
== END | disposition home or self-care (01) ==
LOC: RADCTMAIN 13:16
PROVIDERS: ATTEND Internal Medicine
DX: Z12.2 Encounter for screening for malignant neoplasm of respiratory organs (principal); F17.210 Nicotine dependence, cigarettes, uncomplicated
CPT/HCPCS: 71271

== ENCOUNTER → 2024-01-25 | Outpatient (CLI) | payer MEDICARE ==
[2024-01-25 13:09] LABS: African American GFR (CKD) 86 (>60 ml/min/1.73 sqM); Blood Urea Nitrogen 22 mg/dL (7-17); Non-African American GFR(CKD) 74 (>60 ml/min/1.73 sqM)
--- NOTE | 2024-01-25 14:13 | CT ---
CTA chest and abdomen HISTORY: Thoracic aortic aneurysm. COMPARISON: None. TECHNIQUE: Multiple axial images were obtained through the thorax and abdomen before and after the un eventful administration of nonionic IV contrast. The exam was performed cardiac CTA protocol. 3-D pos tprocessing was performed. FINDINGS: CTA thorax. The aortic root is not enlarged and is 3 cm. There is no ascending thoracic aortic aneurysm which lon sures approximately 3.6 cm in greatest dimension. There is no mediastinal, hilar or axillary adenopathy. There is no suspicious lung mass or nodule. There is no abnormal airspace/consolidative density or abnormal interstitial density. There is no pleural effusion, pleural thickening or pneumothorax. There is no focal osseous lesions within the bony thorax. CT ABDOMEN: Infrarenal abdominal aorta is normal in caliber is no evidence of aneurysm. There is no retroperitoneal adenopathy or hemorrhage. The origins of the mesenteric arteries and renal arteries are widely patent. There is no solid renal mass or hydronephrosis. 101 the gallbladder is unremarkable. There is no focal mass or organomegaly involving the liver, pancreas, spleen and adrenal glands. The bowel loops are normal without dilatation or obstruction. No free intraperitoneal air or fluid. V isualized osseous structures are unremarkable. IMPRESSION: No significant abnormality seen. There is no thoracic or abdominal aortic aneurysm.
--- NOTE | 2024-01-26 18:12 | CA ---
Transthoracic Echo Report Name: Zakiya Monte Age: 68 Gender: F : 1955 Exam Date: 01/25/2024 14:00 Exam Location: [facility] Ht (in): 67 Wt (lb): 133 Ordering Physician: Lulu Ozuna MD Attending/Referring Phys: Lulu Ozuna MD Hospitality Coordinator Yany Velazquez RCS Procedure CPT: Indications: I71.20 THORACIC AORTIC ANEURYSM, WITHOUT RUPTURE, Cardiac Hx: Technical Quality: Good Contrast 1: Total Dose (mL): Contrast 2: Total Dose (mL): MEASUREMENTS (Male / Female) Normal Values 2D ECHO LV Diastolic Diameter PLAX 4.7 cm 4.2 - 5.9 / 3.9 - 5.3 cm LV Systolic Diameter PLAX 3.1 cm IVS Diastolic Thickness 0.7 cm 0.6 - 1.0 / 0.6 - 0.9 cm LVPW Diastolic Thickness 0.7 cm 0.6 - 1.0 / 0.6 - 0.9 cm LV Relative Wall Thickness 0.3 RV Internal Dim ED PLAX 2.9 cm LVOT Diameter 2.7 cm Aortic Root Diameter 3.1 cm LV Diastolic Volume MOD BP 83.8 cm??? 67 - 155 / 56 - 104 cm??? LV Systolic Volume MOD BP 30.5 cm??? 22 - 58 / 19 - 49 cm??? LV Ejection Fraction MOD BP 63.7 % >= 55 % LV Cardiac Index MOD BP 1931.1 cm???/min???m??? LV Diastolic Volume MOD 4C 85.5 cm??? LV Systolic Volume MOD 4C 32.3 cm??? LV Ejection Fraction MOD 4C 62.3 % LV Cardiac Index MOD 4C 1927.5 cm???/min???m??? LV Diastolic Length 4C 7.6 cm LV Systolic Length 4C 6.5 cm LV Diastolic Volume MOD 2C 78.2 cm??? LV Systolic Volume MOD 2C 28.5 cm??? LV Ejection Fraction MOD 2C 63.6 % LV Cardiac Index MOD 2C 1801.4 cm???/min???m??? LV Diastolic Length 2C 8.0 cm LV Systolic Length 2C 6.4 cm LA Volume 34.3 cm??? 18 - 58 / 22 - 52 cm??? LA Volume Index 20.3 cm???/m??? 16 - 28 cm???/m??? Ascending Aorta Diameter 3.6 cm DOPPLER AV Peak Velocity 104.0 cm/s AV Peak Gradient 4.3 mmHg AV Mean Velocity 67.7 cm/s AV Mean Gradient 2.1 mmHg AV Velocity Time Integral 23.4 cm LVOT Peak Velocity 83.7 cm/s LVOT Peak Gradient 2.8 mmHg LVOT Velocity Time Integral 17.8 cm LVOT Stroke Volume 98.9 cm??? LVOT Stroke Volume Index 58.2 ml/m??? LVOT Cardiac Index 3579.7 cm???/min???m??? AV Area Cont Eq vti 4.2 cm??? AV Area Cont Eq pk 4.5 cm??? MV Area PHT 4.1 cm??? Mitral E Point Velocity 49.5 cm/s Mitral A Point Velocity 72.9 cm/s Mitral E to A Ratio 0.7 MV Deceleration Time 187.1 ms TR Peak Velocity 209.5 cm/s TR Peak Gradient 17.6 mmHg PV Peak Velocity 84.4 cm/s PV Peak Gradient 2.8 mmHg FINDINGS Left Ventricle Left ventricular ejection fraction is estimated at 55-60 %. Left ventricular cavity size normal. Left ventricular wall thickness normal. No obvious regional wall motion abnormalities.left ventricular cavity size normal. Right Ventricle Normal right ventricular size and function. Right ventricular systolic pressure within normal limits. Right Atrium Normal right atrial size. Left Atrium Normal left atrial size. Mitral Valve Structurally normal mitral valve. No mitral stenosis, regurgitation or prolapse. Aortic Valve Trileaflet aortic valve. No aortic valve stenosis or regurgitation. Mildly thickened aortic valve leaflets Tricuspid Valve Structurally normal tricuspid valve. No tricuspid stenosis. Mild tricuspid regurgitation. Pulmonic Valve Structurally normal pulmonic valve. No pulmonic stenosis. Trace pulmonic regurgitation. Pericardium No pericardial effusion. Aorta Normal size aortic root and proximal ascending aorta. CONCLUSIONS 1. Normal size and systolic function 2. Mild tricuspid regurgitation Previewed by: Dr. Hector Abdi MD (Electronically Signed) Final Date: 26 January 2024 18:11
== END | disposition home or self-care (01) ==
LOC: RADCTMAIN 12:14
PROVIDERS: ATTEND Internal Medicine
DX: I36.1 Nonrheumatic tricuspid (valve) insufficiency (principal); I71.20 Thoracic aortic aneurysm, without rupture, unspecified
CPT/HCPCS: 93306; 82565; 84520; 71275; 74175; 36415; Q9967

== ENCOUNTER → 2024-07-18 | Outpatient (CLI) | payer MEDICARE ==
--- NOTE | 2024-07-19 10:01 | MM ---
Reason for Exam: Screening (asymptomatic). Last screening mammogram was performed 12 month(s) ago. Patient History: Menarche at age 13. First Full-Term at age 27. Postmenopausal. Hormonal Contraceptives for 6 years from age 21 until age 27. 01/08/2009, Benign Core Biopsy on the left side. 01/08/2009, Cancelled Right US Needle Biopsy on the right side. Risk Values: Lizz 5 year model risk: 2.2%. NCI Lifetime model risk: 7.2%. Prior Study Comparison: 01/22/2021 Bilateral Diagnostic Mammogram, [facility]. 05/19/2022 Bilateral MG 3D screening mammo w/cad, [facility]. 07/15/2023 Bilateral MG 3D screening mammo w/cad, [facility]. Tissue Density: There are scattered areas of fibroglandular density. Findings: Analyzed By CAD. Left breast biopsy clip. Right breast: There is no suspicious group of microcalcifications or new suspicious mass. Left breast: There is no suspicious group of microcalcifications or new suspicious mass. Overall Assessment: Benign, BI-RAD 2 Management: Screening Mammogram of both breasts in [address] [facility] will attempt to contact patient to return for supplemental views and ultrasound if indicated. Patient should continue monthly self-breast exams. A clinical breast exam by your physician is recommended on an annual basis. This exam should not preclude additional follow-up of suspicious palpable abnormalities. Note on Lizz scores and lifetime risk: 1. A Lizz score greater than 3% is considered moderate risk. If this is the case, consider specialist referral to assess eligibility for a risk reducing agent. 2. If overall lifetime risk for the development of breast cancer is 20% or higher, the patient may qualify for future screening with alternating mammogram and breast MRI. [facility], , 07/19/2024 9:58 AM. Electronically signed and approved by: Fermin Zeng DO
--- NOTE | 2024-07-19 23:24 | BD ---
EXAMINATION TYPE: Axial Bone Density DATE OF EXAM: 07/18/2024 CLINICAL HISTORY: 69 years old Female. ICD-10 CODE: M85.851 OT DISRD OF BONE DENSITY Height: 5 ft 5 in Weight: 132 FRAX RISK QUESTIONS: Alcohol (3 or more units per day): no Family History (Parent hip fracture): no Glucocorticoids (More than 3mos): no (Ex: prednisone, prednisolone, methylprednisolone, dexamethasone, and hydrocortisone). History of Fracture in Adulthood: no Secondary Osteoporosis: 1. Type 1 Diabetes: no 2. Hyperthyroidism: no 3. Menopause before 45: no 4. Malnutrition: no 5. Chronic liver disease: no Rheumatoid Arthritis: no Current Tobacco Use: yes RISK FACTORS HISTORY OF: Surgery to Spine/Hip(right/left)/Wrist (right/left): no MEDICATIONS: Thyroid Medications: none Osteoporosis Medications: yes Which medication: fosamax How Lon-5 months EXAM MEASUREMENTS: Bone mineral densitometry was performed using the Achieve3000 System. Bone mineral density as measured about the Lumbar spine is: ----- L1-L4(G/cm2): 0.929 T Score Values are as follows: ----- L1: -2.3 ----- L2: -2.4 ----- L3: -2.2 ----- L4: -1.6 ----- L1-L4: -2.1 Z Score Values are as follows: ----- L1: -0.5 ----- L2: -0.6 ----- L3: -0.4 ----- L4: 0.2 ----- L1-L4: -0.3 Bone mineral density has: decreased -2.3 % since study of: 2021 Bone mineral density about the R hip (g/cm2): 0.676 Bone mineral density about the L hip (g/cm2): 0.715 T Score values are as follows: -----R Neck: -2.6 -----L Neck: -2.3 -----R Total: -2.9 -----L Total: -2.2 Z Score values are as follows: -----R Neck: -0.9 -----L Neck: -0.6 -----R Total: -1.4 -----L Total: -0.7 Bone mineral density has: decreased -7.0 % since study of: 2021 FRAX%s: The graph provided illustrates a 24.1 % chance for a major osteoporotic fx and a 9.6 % chance for the hips probability for fx in 10 years time. IMPRESSION: Osteoporosis (T Score less than -2.5). There is increased fracture risk and therapy is usually indicated based on age. Re-Screen 1-2 years. NOTE: T-SCORE=SD OF THE YOUNG ADULT MEAN. [facility], , 07/19/2024 11:21 PM
--- NOTE | 2024-08-15 10:11 | US ---
EXAMINATION TYPE: US carotid duplex BILAT DATE OF EXAM: 07/18/2024 COMPARISON: NONE CLINICAL INDICATION: Female, 69 years old with history of I65.23 BHARGAVI CAROTID ARTERY STENOSIS; screen TECHNIQUE: Grayscale color Doppler and spectral Doppler imaging. Carotid duplex ultrasound examinatio n. Indirect Doppler criteria was utilized. FINDINGS: EXAM MEASUREMENTS: RIGHT: Peak Systolic Velocity (PSV) cm/sec ----- Right CCA: 73.5 ----- Right ICA: 77.3 ----- Right ECA: 97.8 ICA/CCA ratio: 1.1 RIGHT: End Diastole cm/sec ----- Right CCA: 34.3 ----- Right ICA: 38.9 ----- Right ECA: 29.2 LEFT: Peak Systolic Velocity (PSV) cm/sec ----- Left CCA: 70.6 ----- Left ICA: 81.8 ----- Left ECA: 92.1 ICA/CCA ratio: 1.2 LEFT: End Diastole cm/sec ----- Left CCA: 30.5 ----- Left ICA: 40.7 ----- Left ECA: 26.7 VERTEBRALS (direction of flow): Right Vertebral: Antegrade Left Vertebral: Antegrade Rhythm: Normal [employer]: mild plaque IMPRESSION: Less than 50% stenosis of the bilateral carotid bifurcations. Criteria for Assigning % of Stenosis / Diameter reduction (Estimation based on the indirect measurements of the internal carotid artery velocities (ICA PSV). 1. Normal (no stenosis)=ICA PSV < 125 cm/s: ratio < 2.0: ICA EDV<40 cm/s. 2. Less than 50% stenosis=ICA PSV < 125 cm/s: ratio < 2.0: ICA EDV<40 cm/s. 3. 50 to 69% stenosis=ICA PSV of 125 to 230 cm/s: ration 2.0 ? 4.0: ICA EDV 40-100 cm/s. 4. Greater than 70% stenosis to near occlusion= ICA PSV > 230 cm/s: ratio > 4.0: ICA EDV > 100 cm/s. 5. Near occlusion= ICA PSV velocities may be low or undetectable: variable ratio and ICA EDV. 6. Total occlusion=unable to detect flow. [facility], , 08/15/2024 10:09 AM
== END | disposition home or self-care (01) ==
LOC: RADMAMWWP 13:43
PROVIDERS: ATTEND Internal Medicine
DX: Z12.31 Encounter for screening mammogram for malignant neoplasm of breast (principal); M81.0 Age-related osteoporosis without current pathological fracture; M85.88 Other specified disorders of bone density and structure, other site; Z78.0 Asymptomatic menopausal state
CPT/HCPCS: 77063; 77067; 77080; 93880

== ENCOUNTER → 2025-01-30 | Outpatient (CLI) | payer MEDICARE ==
--- NOTE | 2025-01-30 10:59 | CTL ---
EXAMINATION TYPE: CT Low Dose Lung DATE OF EXAM ORDERED: 01/30/2025 COMPARISON: Prior CT December 18, 2023 and older studies CLINICAL INDICATION: Female, 69 years old with history of Z12.2 Screening, F17.210; PHH, LUNG SCREENI NG, SMOKER x 52 years, Lung cancer screening, History of Smoking/tobacco use. TECHNIQUE: Low dose computed tomography scan was performed through the chest at 1 mm thick sections a nd reconstructed images in multiple planes at 1 mm and [address] DLP: 69.[address] CTDI: 1.70 mGy Automated exposure control for dose reduction was used. CT DIAGNOSTIC QUALITY: Satisfactory FINDINGS: Nodules: No new greater than 4 mm noncalcified pulmonary nodules. LUNGS: COPD: Severity: None Fibrosis: Severity: Mild biapical Lymph nodes: None Other findings: None RIGHT PLEURAL SPACE: Effusion: None Calcification: None Thickening: None Pneumothorax: None LEFT PLEURAL SPACE: Effusion: None Calcification: None Thickening: None Pneumothorax: None HEART: Heart Size: Normal Coronary Calcification: Small Pericardial Effusion: None OTHER FINDINGS: Upper abdomen: None Bony thorax: Scoliotic curvature Supraclavicular region: None Other: Ascending aorta measures up to 3.9 cm in diameter IMPRESSION: No suspicious nodules. CT LUNG RAD AND CT CHEST RECOMMENDATION: Lung-Rad 1 Negative: Continue annual screening with LDCT in 12 months. S Modifier (other clinically significant findings): None [facility], , 01/30/2025 10:56 AM
== END | disposition home or self-care (01) ==
LOC: RADCTMAIN 08:31
PROVIDERS: ATTEND Internal Medicine
DX: Z12.2 Encounter for screening for malignant neoplasm of respiratory organs (principal); F17.210 Nicotine dependence, cigarettes, uncomplicated
CPT/HCPCS: 71271